=== PATIENT | male | born 1990 | race Caucasian/White ===

== ENCOUNTER 2019-01-11 09:36 | Emergency (ER) | payer BC, OTHER ==
[~2019-01-11] VITALS: Ht 175.3 cm; Wt 106.1 kg
[2019-01-11] MEDS ORDERED: AMLO10TA7 PO (09:47)
[2019-01-11] MEDS ORDERED: LOSA25TA27 PO (09:47)
--- NOTE | 2019-01-11 09:55 | NUR ---
PT A/OX4, PRESENTS TO THE ER C/O CHEST TIGHTNESS SINCE 0600 THIS AM. PT DENIES PAIN PROVOCATION, TIGHTNESS IN QUALITY, DOES NOT RADIATE, 3/10, CONSTANT. VSS. PT DENIES PHYSICAL ACTIVITY PRIOR TO ONSET OF CHEST TIGHTNESS. PT DENIES SOB, N/V/D, DIZZINESS, HEADACHE. ER MD AT BEDSIDE FOR MSE.
[2019-01-11 10:08] LABS: BASOPHILS % (AUTO) 0.5 % (0.0-2.0); EOSINOPHILS # (AUTO) 0.1 K/uL (0.0-0.7); EOSINOPHILS % (AUTO) 1.9 % (0.0-7.0); HEMOGLOBIN 16.9 g/dL (12.5-16.3); LYMPHOCYTES # (AUTO) 1.9 K/uL (20.0-40.0); LYMPHOCYTES % (AUTO) 25.1 % (20.5-51.5); MEAN CORPUSCULAR HGB CONC 35 g/dL (32.5-36.3); MEAN CORPUSCULAR VOLUME 88.3 fL (73.0-96.2); MONOCYTES # (AUTO) 0.7 K/uL (2.0-10.0); MONOCYTES % (AUTO) 9.7 % (0.0-11.0); NEUTROPHILS # (AUTO) 4.8 K/uL (1.8-8.9); NEUTROPHILS % (AUTO) 62.8 % (38.5-71.5); PLATELET COUNT (AUTO) 261 K/uL (152-348); RED BLOOD CELL COUNT(AUTO) 5.43 MIL/uL (4.06-5.63); WHITE BLOOD COUNT (AUTO) 7.6 K/uL (3.6-10.2)
[2019-01-11 10:12] LABS: CREATININE 0.9 mg/dL (0.6-1.3); POTASSIUM 3.8 mmol/L (3.5-5.1)
[2019-01-11] MEDS ORDERED: IV NORMAL SALINE 500 ML BAG IV ONE (10:15)
[2019-01-11 10:56] VITALS: BP 166/72
--- NOTE | 2019-01-11 10:56 | NUR ---
Patient discharged to home in stable conditon. Written and verbal after care instructions given. Patient verbalizes understanding of instructions. ALL BELONGINGS W/ PT. PT SELF-AMBULATED W/O DIFFICULTY. 20G IV ACCESS IN RAC REMOVED PRIOR TO D/C - INNER CANNULA INTACT.
== END 2019-01-11 10:58 | disposition home or self-care (01) ==
LOC: ER 09:36
DX: I10 Essential (primary) hypertension (principal); Z88.1 Allergy status to other antibiotic agents; Z88.2 Allergy status to sulfonamides; Z88.8 Allergy status to other drugs, medicaments and biological substances; Z79.899 Other long term (current) drug therapy
CPT/HCPCS: 36415; 70030-TC; 71045; 83735; 85025; 85730; 93005; A4663; J7030